=== PATIENT | male | born 1975 | race Caucasian/White ===

== ENCOUNTER 2021-04-05 09:31 | Emergency (ER) | payer BC ==
[2021-04-05 09:37] VITALS: BP 130/74; PULSE 68; RESP 18; TEMP 99.4
[2021-04-05 09:49] LABS: Glucose,Whole Blood 153 mg/dL (75-99)
[2021-04-05] MEDS ORDERED: IBUPROFEN 600 MG TAB PO STA (09:51)
--- NOTE | 2021-04-05 09:51 | ED ---
General Adult HPI - General Chief complaint: Skin/Abscess/Foreign Body Stated complaint: Left ear pain Time Seen by Provider: 04/05/21 09:39 Source: patient, RN notes reviewed Mode of arrival: ambulatory Limitations: no limitations - History of Present Illness Initial comments: Patient is a pleasant 45-year-old male presenting to the emergency department with concerns for left ear discomfort. Onset of symptoms was 3 or 4 days ago. Discomfort is mild. Patient is noticing swelling. Patient questions if he may have had a spider bite however has not noticed this specific area or witness a spider. No other area involved. No history of similar symptoms previously. No fever. - Related Data Home Medications Medication Instructions Recorded Confirmed Gabapentin [Neurontin] 100 mg PO TID 10/23/13 02/03/16 rOPINIRole HCL [Requip] 5 mg PO HS 10/23/13 02/03/16 Aspirin 81 mg PO DAILY 06/06/14 02/03/16 lisinopriL [Zestril] 5 mg PO DAILY 06/06/14 02/03/16 Previous Rx's Medication Instructions Recorded traMADol HCl [Ultram] 50 mg PO Q4H PRN #20 tab 10/23/13 Ibuprofen [Motrin] 600 mg PO Q6HR PRN #20 tab 02/03/16 Clindamycin [Cleocin] 2 cap PO Q8H #60 cap 04/05/21 Allergies Allergy/AdvReac Type Severity Reaction Status Date / Time No Known Allergies Allergy Verified 04/05/21 09:38 Review of Systems ROS Statement: Those systems with pertinent positive or pertinent negative responses have been documented in the HPI. ROS Other: All systems not noted in ROS Statement are negative. Constitutional: Denies: fever, chills Eyes: Denies: eye pain ENT: Reports: as per HPI Respiratory: Denies: cough Cardiovascular: Denies: chest pain Endocrine: Denies: fatigue Gastrointestinal: Denies: abdominal pain Genitourinary: Denies: dysuria Musculoskeletal: Denies: back pain Skin: Reports: as per HPI Neurological: Denies: weakness Past Medical History Past Medical History: Hypertension Additional Past Medical History / Comment(s): hypoglycemia, degenerative disc disease, hx GOUT, occ vomiting, History of Any Multi-Drug Resistant Organisms: None Reported Past Surgical History: No Surgical Hx Reported Additional Past Surgical History / Comment(s): colonsocopy Past Anesthesia/Blood Transfusion Reactions: No Reported Reaction Past Psychological History: No Psychological Hx Reported Smoking Status: Former smoker Past Alcohol Use History: None Reported Past Drug Use History: None Reported - Past Family History Father Family Medical History: Cancer, Deep Vein Thrombosis (DVT) Additional Family Medical History / Comment(s): ESOPHAGEAL CANCER Mother Family Medical History: Hypertension General Exam Limitations: physical limitation General appearance: alert, in no apparent distress Head exam: Present: normocephalic Eye exam: Present: normal appearance ENT exam: Present: other (Auricle, left With mild swelling and mild erythema, more so in the upper portion. No abscess or lesion.) Neck exam: Present: lymphadenopathy (Left upper) Respiratory exam: Present: normal lung sounds bilaterally Cardiovascular Exam: Present: regular rate, normal rhythm Extremities exam: Present: normal inspection Neurological exam: Present: alert Psychiatric exam: Present: normal affect, normal mood Skin exam: Present: erythema (Left ear) Course Vital Signs 04/05/21 09:32 Temperature 99.4 F Pulse Rate 68 Respiratory 18 Rate Blood Pressure 130/74 O2 Sat by Pulse 98 Oximetry Disposition Clinical Impression: Cellulitis of auricle of ear Disposition: HOME SELF-CARE Condition: Stable Instructions (If sedation given, give patient instructions): Cellulitis (ED) Additional Instructions: Please follow-up with primary care physician in the next day or 2 for recheck. Return for increased pain, swelling, redness, fevers, worsening symptoms or any other concerns. Prescription for and about X has been sent to your pharmacy. Prescriptions: Clindamycin [Cleocin] 2 cap PO Q8H #60 cap Is patient prescribed a controlled substance at d/c from ED?: No Referrals: Federico Patel DO [Primary Care Provider] - 1-2 days Time of Disposition: 09:50
== END 2021-04-05 09:59 | disposition home or self-care (01) ==
LOC: EC 09:31
DX: H60.12 Cellulitis of left external ear (principal); I10 Essential (primary) hypertension; Z87.891 Personal history of nicotine dependence; Z79.899 Other long term (current) drug therapy
CPT/HCPCS: 36415; 99283